=== PATIENT | female | born 1975 | race Caucasian/White ===

== ENCOUNTER → 2017-06-18 | Outpatient (CLI) | payer OTHER ==
--- NOTE | 2017-06-18 09:51 | REP ---
Right knee series: Five views. History: Pain in the right knee. Findings: Five views of the right knee demonstrate medial, lateral and patellofemoral spurring consistent with three compartment osteoarthritis. There is no erosive change or visible joint space narrowing. No joint effusion is seen. Impression: Mild three compartment osteoarthritis. Signed by Rene Bustos MD 06/18/2017 04:38 P
== END ==
LOC: M RAD 08:43
PROVIDERS: ATTEND Nurse Practitioner
DX: M17.11 Unilateral primary osteoarthritis, right knee (principal)

== ENCOUNTER → 2018-03-30 | Outpatient (CLI) | payer OTHER | LOC: M RAD 10:13 | DX: M24.872 Other specific joint derangements of left ankle, not elsewhere classified (principal) | CPT/HCPCS: 73721 ==

== ENCOUNTER → 2021-11-06 | Outpatient (REF) | LOC: M EMP 07:51 | PROVIDERS: ATTEND Family Medicine | DX: Z20.822 Contact with and (suspected) exposure to COVID-19 (principal) ==

== ENCOUNTER → 2023-03-05 | Outpatient (REF) | payer OTHER, BC | LOC: M LAB REF 17:25 | PROVIDERS: ATTEND Family Medicine | DX: R30.0 Dysuria (principal) ==

== ENCOUNTER → 2023-04-22 | Outpatient (REF) | payer BC | LOC: M SFHCDERM 07:41 | PROVIDERS: ATTEND Physician Assistant | DX: L71.8 Other rosacea (principal); Z53.9 Procedure and treatment not carried out, unspecified reason ==

== ENCOUNTER 2023-11-06 07:00 | Day surgery (SDC) | payer BC ==
[~2023-11-06] VITALS: Ht 160 cm; Wt 67.6 kg
[~2023-11-06 07:00] MED LIST: ALBU8.5H; AMIT25TA19 PO; BIOT1CAP2 PO; BUPR-71 PO; FLUT12AE6; IRON1TAB2 PO; L-LY500T14 PO; NS 1,000 ML IV ONE; PROBCAP14 PO; RHINOCORT; THERTAB52 PO; VITA100093 PO; ZYRTTAB8 PO
[2023-11-06] MEDS ORDERED: propofoL 200 MG/20 ML VIAL As Ordered ONE ×2 (08:09→08:23)
[2023-11-06] MEDS ORDERED: LIDOCAINE 2% 100MG/5ML SDV (FOR ANES.) As Ordered ONE (08:09)
[2023-11-06 08:34] VITALS: TEMP 97.2
[2023-11-06 08:50] VITALS: BP 94/55; O2SAT 100
== END 2023-11-06 09:02 | disposition home or self-care (01) ==
LOC: M OPP 07:00
PROVIDERS: ATTEND Internal Medicine Gastroenterology
DX: Z12.11 Encounter for screening for malignant neoplasm of colon (principal); Z80.0 Family history of malignant neoplasm of digestive organs; D12.0 Benign neoplasm of cecum; D12.5 Benign neoplasm of sigmoid colon; Q43.8 Other specified congenital malformations of intestine; Z79.51 Long term (current) use of inhaled steroids; Z79.899 Other long term (current) drug therapy; Z88.5 Allergy status to narcotic agent; Z88.6 Allergy status to analgesic agent; Z91.040 Latex allergy status; Z91.048 Other nonmedicinal substance allergy status; Z98.84 Bariatric surgery status

== ENCOUNTER → 2025-01-12 | Outpatient (REF) | payer BC ==
[~2025-01-12] MED LIST changes: -NS 1,000 ML IV ONE
== END ==
LOC: M LAB REF 17:11
PROVIDERS: ATTEND Family Medicine
DX: N76.0 Acute vaginitis (principal)

== ENCOUNTER → 2025-09-01 | Outpatient (REF) | payer BC | LOC: M LAB REF 15:19 | PROVIDERS: ATTEND Nurse Practitioner Adult Health | DX: N89.8 Other specified noninflammatory disorders of vagina (principal) ==

== ENCOUNTER → 2025-10-05 | Outpatient (REF) | payer BC | LOC: M LAB REF 16:50 | PROVIDERS: ATTEND Nurse Practitioner Adult Health | DX: R30.0 Dysuria (principal) ==